=== PATIENT | male | born 1960 | race Caucasian/White ===

== ENCOUNTER → 2023-04-30 06:27 | Day surgery (SDC) | payer OTHER, SELFPAY | LOC: GI 06:27 | PROVIDERS: ATTENDING PHYSICIAN Internal Medicine | DX: Z12.11 Encounter for screening for malignant neoplasm of colon (principal); K57.30 Diverticulosis of large intestine without perforation or abscess without bleeding | CPT/HCPCS: G0105 ==

== ENCOUNTER 2023-10-07 05:06 | Emergency (ER) | payer OTHER, SELFPAY ==
[2023-10-07 05:10] VITALS: BP 204/99
[2023-10-07 05:20] VITALS: BMI 27.0
[2023-10-07 05:33] VITALS: BP 190/98
[2023-10-07 05:36] LABS: % Basophils 0.5 % (0-2); % Eosinophils 1.2 % (0-6); % Immature Granulocytes 0.3 % (0-0.5); % Lymphocytes 10.7 % (20.5-51.1); % Monocytes 4.4 % (1.7-9.3); % Neutrophils 82.9 % (42.2-75.2); Absolute Eosinophils 0.1 10^3/uL (0-0.7); Absolute Lymphocytes 0.7 10^3/uL (1.2-3.4); Absolute Monocytes 0.3 10^3/uL (0.1-0.6); Absolute Neutrophils 5.4 10^3/uL (1.4-6.5); Hematocrit 42.3 % (39.0-52.0); Hemoglobin 15.7 g/dL (13.0-18.0); Mean Corp Hgb Conc. 37.1 g/dL (33.0-37.0); Mean Corpuscular Hgb 32.2 pg (27.0-31.0); Mean Corpuscular Volume 86.9 fL (80.0-94.0); Mean Platelet Volume 10.4 fL (7.4-10.4); Nucleated Red Blood Cells % 0 % (-); Platelet Count 147 10^3/uL (130-400); Red Blood Cell Count 4.87 10^6/uL (4.70-6.10); Red Cell Dist. Width 12.3 % (11.5-14.5); White Blood Cell Count 6.5 10^3/uL (4.8-10.8)
[2023-10-07 05:49] LABS: ALT (SGPT) 57 U/L (0-50); AST (SGOT) 40 U/L (17-59); Albumin 4.7 g/dl (3.5-5.0); Alkaline Phosphatase 69 U/L (38-126); Blood Urea Nitrogen 18 mg/dl (9-20); Calcium 9.6 mg/dl (8.4-10.2); Carbon Dioxide 24 mmol/L (22-30); Chloride 105 mmol/L (98-107); Estimated Creatinine Clearance 98 ml/min; Glucose 123 mg/dl (70-99); Sodium 137 mmol/L (135-145); Total Bilirubin 0.7 mg/dl (0.2-1.3); Total Protein 7.1 g/dl (6.3-8.2); eGFR > 60.00
[2023-10-07 06:00] VITALS: BP 183/98
[2023-10-07 06:01] LABS: Troponin I < 0.012 ng/ml
--- NOTE | 2023-10-07 06:09 | ED.GENMED ---
History of Present Illness
General
Chief Complaint: Chest Pain
Source: patient
Exam Limitations: none
Time Seen by Provider: 10/07/23 05:58
Nursing documentation reviewed up to this point in time: agreed with
History of Present Illness
History of Present Illness:
62 male history of hypertension drinker smoker had some alcohol and hot wings last night he around 89 woke up with sharp pain in his upper abdomen into his back no nausea or vomiting no diaphoresis did not go to the jaw, said indigestion previously
this is similar, no history of heart disease, no prior abdominal surgeries no leg edema
Past History
Past History
ED Past Medical History: HTN
ED Past Surgical History: None; Negative Appendectomy, Cardiac or Cholecystectomy
Social History
Tobacco: Smoker
Alcohol: Occasional
Drug: None
Personal:
Living: with family
Employment: Employed
Family History
Family History: Negative CAD
Review of Systems
Review of Systems
All Other Systems: Not applicable
Constitutional: Denies fever or fatigue
EENT: Reports no symptoms
Respiratory: Denies cough or trouble breathing
Cardiac: Reports chest pain
ABD/GI: Reports abdominal pain
Neurological: Reports no symptoms
Endocrine: Reports no symptoms
Phy Exam
Physical Exam
Physical Exam:
Physical Exam
General: no apparent distress, not acutely ill
Neck: No jaundice
Heart: s1/s2 regular rate and rhythm, no murmur. equal radial pulses.
Lungs: no acute respiratory distress. clear bilaterally
Abdomen: Tender in the epigastric
Neuro: alert and oriented. no focal neurological deficits
Skin: no rash
Psychiatric: well kept. interactive and cooperative
Extremities: no edema. no calf tenderness. negative homans. good distal pulses
Scores
Heart Score for Chest Pain Patients
STEMI patient?: No
History: Slightly or Non-Suspicious
ECG: Normal
Age: >45 - <65 years
Risk Factors: 1 or 2 Risk Factors
Troponin: </= Normal Limit
Heart Score for Chest Pain Patients: 2
Heart Score Risk: 2.5% MACE over next 6 weeks
Course
Orders/Labs/Results
Orders:
Orders
10/07/23
Electrocardiogram (*1) Stat
Reason for Study: Chest Pain
Comment: DONE
10/07/23 05:07
Electrocardiogram (*1) Urgent
Reason for Study: Chest Pain
10/07/23 05:08
EKG- Treatment ONCE
10/07/23 05:29
CMP [Comprehensive Metabolic Panel] Urgent
Complete Blood Count/With Diff Urgent
Lipase Urgent
Comment: ADD ON
Troponin I Urgent
10/07/23 05:35
Cardiac Monitoring- Treatment ONCE
CR Chest - 2 Views Urgent
Comment:
Reason For Exam: respiratory distress
10/07/23 06:08
Mag Hydrox/Al Hydrox/Simeth [Maalox] 30 ml Phenobarb/Hyoscy/Atropine/Scop [] 10 ml PO NOW
Pantoprazole [Protonix IV] 40 mg IV NOW STA
10/07/23 06:09
Add On- LAB Urgent
Tests Added?: lipase
US Abdomen Complete/Upper Urgent
Comment:
Reason For Exam: pain
10/07/23 06:12
Phenobarb/Hyoscy/Atropine/Scop [] 10 ml .ROUTE .STK-MED ONE
10/07/23 06:13
Mag Hydrox/Al Hydrox/Simeth [Maalox] 30 ml .ROUTE .STK-MED ONE
10/07/23 08:45
Troponin I Urgent
Abnormal Lab Results
10/07/23
05:29
MCH 32.2 H pg
(27.0-31.0)
MCHC 37.1 H g/dL
(33.0-37.0)
Absolute Lymphs (auto) 0.7 L 10^3/uL
(1.2-3.4)
Neutrophils % 82.9 H %
(42.2-75.2)
Lymphocytes % 10.7 L %
(20.5-51.1)
Glucose 123 H mg/dl
(70-99)
ALT 57 H U/L
(0-50)
10/07/23 05:29
10/07/23 05:29
Vital Signs
Initial and Last Documented VS:
Initial Vital Signs
Temp Pulse Resp BP Pulse Ox
97.8 F 78 22 204/99 98
10/07/23 05:10 10/07/23 05:10 10/07/23 05:10 10/07/23 05:10 10/07/23 05:10
Last Documented Vital Signs
Temp Pulse Resp BP Pulse Ox
97.8 F 54 14 165/102 96
10/07/23 05:10 10/07/23 09:45 10/07/23 09:45 10/07/23 09:30 10/07/23 09:45
MDM/Problems Addressed
Differential Diagnosis Includes:
Gastritis pancreatitis biliary colic ACS less likely suspect
MDM/Problems Addressed:
Abdominal pain chest
Chronic conditions affecting care: HTN
Acute Exacerbation and/or Progression of Chronic Illness: HTN
*Critical Care Note
Total Time (30-74mins, 75-104mins- exclusive of procedures): Not Applicable
Update Note
Update Note:
Symptoms started after alcohol and hot wings, EKG troponin noted will add lipase ultrasound started on PPI
730 labs noted ultrasound noted report noted patient states he is feeling better after PPI and GI cocktail his abdomen is soft, less tender than earlier, GERD has been #1 diagnosis, #2 1. Biliary colic believe ACS is less likely
Second troponin noted
ED Attending Note
-
Portions of this chart may have been created with voice recognition software.� Occasional wrong word or��sound alike� substitutions may have occurred due to the inherent limitations of voice recognition software.
Discharge Plan
Departure
Patient Disposition: Home (Routine Discharge)
Date of Disposition: 10/07/23
Time of Disposition: 09:29
Patient with high blood pressure during this ER visit?: No
Condition: Good
Discharge Problem:
Chest pain due to GERD
Instructions: Acid Reflux and GERD in Adults (DC), Gallstones ED, Choosing surgery to treat gallstones
Prescriptions:
New
pantoprazole [Protonix] 40 mg tablet,delayed release (DR/EC)
40 mg PO DAILY Qty: 30 0RF
alum-mag hydroxide-simeth [Antacid Liquid] 200-200-20 mg/5 mL suspension
10 ml PO QID PRN (Reason: dyspepsia) Qty: 1000 0RF
Referrals:
Gerber Valdez DO [Family Provider] -
Jonas Deluna MD [Active] - Next open appointment
Activity Restrictions/Additional Instructions:
Danese diet, avoid fatty and spicy foods
Limit your alcohol intake
Return to the ER for worsening symptoms
Interventions
Interventions:
*Risk Screen - Suicide Last Done: 10/07/23 05:10
*General Assessment Last Done: 10/07/23 05:37
*Neglect/Abuse Screening Last Done: 10/07/23 05:10
ED- Fall Risk Assessment Last Done: 10/07/23 05:38
*ED COVID-19 Vaccine History Last Done: 10/07/23 05:37
*Nursing Disposition Last Done: 10/07/23 10:13
ED- Cardiac Assessment Last Done: 10/07/23 05:19
Discharge Date and Time
Discharge Date/Time: 10/07/23 10:14
Print Language: FILIPINO
[2023-10-07] MEDS: PROTONIX IV 40 MG IV (06:16)
[2023-10-07] MEDS: MAALOX 40 PO (06:16)
[2023-10-07 07:34] LABS: Lipase 87 U/L (23-300)
[2023-10-07 08:51] VITALS: BP 175/93
[2023-10-07 09:00] VITALS: BP 164/97
[2023-10-07 09:23] LABS: Troponin I < 0.012 ng/ml
[2023-10-07 09:30] VITALS: BP 165/102
== END 2023-10-07 10:14 | disposition home or self-care (01) ==
LOC: EMR 05:06
PROVIDERS: Emergency Medicine; EMERGENCY PHYSICIAN Emergency Medicine; FAMILY PHYSICIAN Family Medicine
DX: R07.89 Other chest pain (principal); I10 Essential (primary) hypertension; F17.200 Nicotine dependence, unspecified, uncomplicated; K21.9 Gastro-esophageal reflux disease without esophagitis; Z90.49 Acquired absence of other specified parts of digestive tract
CPT/HCPCS: 99284; 96374; 71046; 76700; 80053; 83690; 84484; 85025; 93005